=== PATIENT | male | born 1980 | race Caucasian/White ===

== ENCOUNTER → 2020-07-30 07:40 | Outpatient (CLI) | payer OTHER, SELFPAY ==
--- NOTE | 2020-07-30 07:47 | DI.US.S_ITS ---
PROCEDURE: US ABDOMEN COMPLETE INDICATIONS: ELEVATION OF LIVER TRANSAMINASE TECHNIQUE: Real-time scanning was performed of the abdominal and retroperitoneal organs, with image documentation. COMPARISON: None. FINDINGS: Liver: Liver is enlarged. Increased echogenicity. MPV demonstrates expected hepatopetal flow. There is decreased sonographic penetration of the liver. Gallbladder: Nondilated. No stones or sludge. Normal gallbladder wall thickness. No pericholecystic fluid. Negative sonographic Gilbert's sign. Biliary ducts: Not well seen. Pancreas: Not well seen. Spleen: Enlarged measuring 14.7 cm. Kidneys: Kidneys are normal in size and echotexture. Right kidney measures 12.8 cm long; left kidney measures 13 cm long. No hydronephrosis or nephrolithiasis. No solid masses. Aorta: Visualized aorta is normal in caliber at less than 3 cm. Proximal aorta is not well seen. Iliacs: Proximal common iliac arteries are normal in caliber at less than 2.5 cm. IVC: Intrahepatic inferior vena cava is patent. IMPRESSION: Exam is limited by acoustic windows and body habitus and bowel gas. There is decreased sonographic penetration of the liver. 1. Increased hepatic echogenicity most consistent with hepatic steatosis. Other forms of hepatocellular disease could have similar appearance. 2. Hepatosplenomegaly. 3. No gallstones. Dictated by: Chris Ross M.D. on 07/30/2020 at 9:29 Approved by: Chris Ross M.D. on 07/30/2020 at 9:44
--- NOTE | 2020-07-30 07:47 | DI.ECHO.S_ITS ---
[facility] +---------+ : : [address] [place] : : : : [id number] : : : : Phone: [phone]+ Echocardiogram Report + + :Name: ANGELO GAMEZ Study Date: 07/30/2020 Height: 72 in : :[facility] ReadingLocation: Weight: 386 lb : : Gender: Male BSA: 2.8 m2 : :: 1980 Age: 40 yrs BP: 160/99 mmHg: :Reason For Study: PALPITATIONS : :Ordering Physician: CONNOR, : :LENA Arcos Performed By: Rasheeda Thompson : :Referring: LENA RYAN : + + Interpretation Summary Technically difficult study. Borderline concentric left ventricular hypertrophy with ejection fraction 60- 65%. No obvious valvular abnormality. Procedure: A two-dimensional transthoracic echocardiogram with color flow and Doppler was performed. The study quality was technically difficult. There is no prior echocardiogram noted for this patient. A contrast injection of Definity was performed to improve assessment of LV function. Patient denied any symptoms after the use of Definity. The patient was in sinus rhythm with heart rates between 65-85 bpm during the exam. Left Ventricle: The estimated left ventricular end diastolic volume is 105 ml. The left ventricle is normal in size. There is borderline concentric left ventricular hypertrophy. The ejection fraction is estimated to be 60-65%. There are no obvious focal wall motion abnormalities noted but poor endocardial definition reduces the sensitivity for the detection of such. Diastolic parameters suggest probable normal left ventricular diastolic function and normal filling pressures. Right Ventricle: The right ventricle is normal in size and function. Atria: The left atrial size is normal. Right atrial size is normal. There is no Doppler evidence for an interatrial shunt. Mitral Valve: The mitral valve is normal in structure and function. There is no mitral regurgitation noted. Aortic Valve: The aortic valve is not well visualized. There is no aortic valve stenosis. No aortic regurgitation is present. Tricuspid Valve: The tricuspid valve is normal in structure and function. There is a trace or physiologic amount of tricuspid regurgitation. Pulmonary artery pressures cannot be estimated because of the lack of a measurable TR jet velocity. Pulmonic Valve: The pulmonic valve is not well visualized. There is no pulmonic valvular regurgitation. Great Vessels: The aortic root is normal size. The dimensions of the ascending aorta are normal. The inferior vena cava was not well visualized. Pericardium/ Pleura There is no pericardial effusion. There is no pleural effusion. MMode/2D Measurements & Calculations LVIDd: 4.8 cm LVOT diam: 2.0 cm LVIDs: 3.5 cm Ao root diam: 3.4 cm FS: 27.3 % Ao Arch Diam (Prox Trans): 2.7 cm EPSS: 0.38 cm IVSd: 1.2 cm LVPWd: 0.75 cm LV ribera. diameter/BSA (cm/m^2): 1.7 LV sys. diameter/BSA (cm/m^2): 1.2 LA A2 area: 21.5 cm2 RA long axis: 4.7 cm LA A4 area: 16.7 cm2 RA area: 15.8 cm2 LA length (vol): 4.7 cm RA vol: 45.1 ml LA vol: 65.0 ml RA : 16.0 ml/m2 LA vol index: 23.1 ml/m2 RVD1 (basal): 3.4 cm TAPSE: 1.7 cm Doppler Measurements & Calculations Ao V2 max: 103.3 cm/sec LVOT Max Eb: 93.3 cm/sec Ao V2 mean: 80.4 cm/sec LV V1 max P.5 mmHg Ao max P.3 mmHg LV V1 VTI: 21.1 cm Ao mean P.7 mmHg JEFF(I,D): 3.4 cm2 Ao V2 VTI: 20.2 cm JEFF(V,D): 2.9 cm2 sev ratio: 1.0 JEFF indexed to BSA (cm^2/m^2): 1.2 MV E max eb: 104.5 cm/sec PA V2 max: 65.1 cm/sec MV A max eb: 89.0 cm/sec PA V2 mean: 45.2 cm/sec MV E/A: 1.2 PA mean P.94 mmHg Med Peak E' Eb: 8.7 cm/sec PA pr(Accel): 29.3 mmHg E/E' med: 12.1 Lat Peak E' Eb: 10.8 cm/sec E/E' lat: 9.7 E/e' average: 10.9 MV dec time: 0.22 sec SV(LVOT): 68.1 ml Electronically signed by: Ramez Keys on Reading Physician:07/30/2020 11:26 AM
== END ==
LOC: US 07:45
PROVIDERS: Referring Provider Family Medicine; Visit Provider Family Medicine
DX: R74.01 Elevation of levels of liver transaminase levels (principal); R00.2 Palpitations; R16.2 Hepatomegaly with splenomegaly, not elsewhere classified
CPT/HCPCS: 76700; C8929; Q9957